=== PATIENT | male | born 1950 | race Caucasian/White ===

== ENCOUNTER 2017-03-12 07:46 | Day surgery (SDC) | payer MEDICARE, OTHER ==
[~2017-03-12 07:46] MED LIST: LACT10SO27 PO; METO25 PO; PRIL20CA PO; SPIR25TA PO; THIA50CA PO
[2017-03-12 08:18] VITALS: BP 148/72; PULSE 71; RESP 14; TEMP 97.6; O2SAT 99
[2017-03-12 09:10] VITALS: BP 138/68; PULSE 66; RESP 16; TEMP 98.2; O2SAT 100
[2017-03-12 09:45] VITALS: BP 133/67; PULSE 67; RESP 16; O2SAT 100
--- NOTE | 2017-03-12 13:37 | RADRPT ---
EXAM DATE/TIME: 03/12/2017 08:12 [place] COMPARISON: No previous studies available for comparison. EXTERNAL COMPARISON: [facility], US LIVER, Jan 04 2017. INDICATIONS : Ascites. MEDICAL HISTORY : Hypertension. Cirrhosis. ETOH abuse. Liver cancer. Ulcer. SURGICAL HISTORY : Liver biopsy. Wrist surgery. Colonoscopy. ENCOUNTER: Initial ACUITY: 1 day PAIN SCORE: 0/10 LOCATION: Right lower quadrant FLUID: Total volume of 3,400 cc of clear, yellow fluid was removed. Fluid was discarded. Paracentesis was therapeutic only. Post procedure scanning reveals no hematoma or other complication. TECHNIQUE: 1. Ultrasound guidance for abdominal paracentesis. 2. Paracentesis. The risks, benefits, and alternatives to ultrasound guided paracentesis were explained to the patient in detail including the risk of bleeding and infection. Written and verbal informed consent was obt ained. With the patient on the ultrasound table, ultrasound imaging was used to select the most appropriate approach for paracentesis. Overlying skin was prepped and draped in the usual sterile fashion and wi th a local anesthetic, a dermatotomy was made with an 11 blade scalpel. A 6 [employer] [id number] ca theter was introduced into the peritoneal cavity and fluid was collected. The patient tolerated the procedure well and left the ultrasound suite in stable condition. CONCLUSION: Uncomplicated ultrasound guided paracentesis. Amado Corral MD FACR on March 12, 2017 at 13:35 Board Certified Radiologist. This report was verified electronically.
== END 2017-03-12 10:11 | disposition home or self-care (01) ==
LOC: HRAD 07:46 → HRIP 07:54 → HRAD 10:11
PROVIDERS: ATTEND Internal Medicine Gastroenterology
DX: R18.8 Other ascites (principal); I10 Essential (primary) hypertension
CPT/HCPCS: 49083; C1729